=== PATIENT | female | born 1985 | race Caucasian/White ===

== ENCOUNTER → 2021-11-07 | Outpatient (CLI) | payer BC, MEDICAID ==
--- NOTE | 2021-11-07 12:35 | Diagnostic Imaging Report ---
INDICATION: survey. TECHNIQUE: Multiple real-time grayscale images were obtained over the gravid uterus. COMPARISON: None FINDINGS: There is a single live fetus in a cephalic presentation. heart rate was recorded at 146 bpm. Placenta is anterior. Amniotic fluid volume is normal. Cervical length is 4.7 cm. survey shows kidneys, bladder and stomach to be unremarkable. brain is unremarkable. There is a four-chamber heart. There is a three-vessel cord with normal insertion. spine is unremarkable. Biometrical measurements are as follows: Biparietal 4.64 cm, age 20 weeks 1 days. Head circumference 17.53 cm, age 20 weeks 1 days. Abdominal circumference 15.99 cm, age 21 weeks 1 days. Femur length 3.45 cm, age 21 weeks 0 days. Sonographic estimate age: 20 weeks 5 days. Sonographic estimated date of delivery: 03/22/2022. Estimated Weight: 382 gm (+/- 56 gm). LMP percentile: 70%. heart rate: 146 beats per minute. number: 1 of 1. IMPRESSION: Single live IUP 20 weeks 5 days gestational age. Estimated date of confinement sonographically is 03/22/2022. No complicating features are detected. Dictated by: Dictated on workstation # [id number]
== END ==
LOC: RAD 10:00
PROVIDERS: ATTEND Nurse Practitioner Women's Health
DX: Z34.02 Encounter for supervision of normal first pregnancy, second trimester (principal); Z3A.20 20 weeks gestation of pregnancy
CPT/HCPCS: 76805

== ENCOUNTER 2021-11-24 06:54 | Outpatient (CLI) | payer BC, MEDICAID ==
[2021-11-24] VITALS (8 sets, daily range): BP systolic 133–153; BP diastolic 68–92
[~2021-11-24] VITALS: Ht 165.1 cm; Wt 113.0 kg
[2021-11-24 07:50] LABS: BILIRUBIN,URINE NEGATIVE (NEGATIVE); CLARITY,URINE CLEAR; COLOR,URINE YELLOW; GLUCOSE, URINE (UA) NEGATIVE (NEGATIVE); KETONES,URINE NEGATIVE (NEGATIVE); LEUKOCYTE ESTERASE ,URINE NEGATIVE (NEGATIVE); NITRITE,URINE NEGATIVE (NEGATIVE); PH,URINE 6.5 (5-9); PROTEIN,URINE 1+ (NEGATIVE)
[2021-11-24 07:59] LABS: BACTERIA,URINE FEW /HPF; RBC,URINE RARE /HPF; WBC,URINE RARE /HPF
[2021-11-24] MEDS ORDERED: CYCLOBENZAPRINE 10 MG (FLEXERIL) TAB PO ONE (08:15)
[2021-11-24] MEDS ORDERED: PNV11TAB5 PO (08:18)
[2021-11-24] MEDS ORDERED: ASPI-999 PO (08:20)
[2021-11-24] MEDS ORDERED: CYCL10TA25 PO (08:31)
--- NOTE | 2021-11-25 08:20 | Physician Query-Final Dx ---
FLETCHER,11/25/21 0820: Clinic Account Progress/Dx Physician Query: Please give diagnosis Please include # weeks gestation Date of Service Nov 24, 2021 at 06:54 MAURY OHARA DO 11/26/21 0528: Clinic Account Progress/Dx DIAGNOSIS: Diagnosis 23 week IUP Pelvic pains FLETCHER,JunNov 25, 2021 08:20 MAURY OHARA DO Nov 26, 2021 05:28
== END 2021-11-24 09:00 | disposition home or self-care (01) ==
LOC: WSo 06:54 → LDRP 06:55 → WSo 09:00
PROVIDERS: ATTEND Obstetrics & Gynecology
DX: O26.899 Other specified pregnancy related conditions, unspecified trimester (principal); O62.9 Abnormality of forces of labor, unspecified; M54.50 Low back pain, unspecified; Z3A.00 Weeks of gestation of pregnancy not specified
CPT/HCPCS: 81000; G0463; 99212

== ENCOUNTER → 2022-02-18 | Outpatient (CLI) | payer BC, MEDICAID ==
[~2022-02-18] MED LIST: ASPI-999 PO; CYCL10TA25 PO; LABE200T10 PO; PNV11TAB5 PO
== END ==
LOC: LABNPT 15:13
PROVIDERS: ATTEND Nurse Practitioner Women's Health
DX: O13.9 Gestational [pregnancy-induced] hypertension without significant proteinuria, unspecified trimester (principal); Z3A.00 Weeks of gestation of pregnancy not specified
CPT/HCPCS: 82570; 84156

== ENCOUNTER → 2022-02-19 | Outpatient (CLI) | payer BC, MEDICAID ==
--- NOTE | 2022-02-19 17:33 | Diagnostic Imaging Report ---
INDICATION: -induced hypertension TECHNIQUE: Multiple real-time grayscale images were obtained over the gravid uterus. COMPARISON: 11/07/2021 FINDINGS: Single live intrauterine is in cephalic presentation. The cervix is not well seen but measures approximately 4 cm in length. Placenta is anterior position and there is no previa. JOSIANE is normal at 15.6 cm. Biophysical profile performed and the fetus scored 2 points for movement, tone and amniotic fluid volume. The fetus got 0 points for breathing movements. Biometrical measurements are as follows: Biparietal 8.32 cm, age 33 weeks 4 days. Head circumference 31.27 cm, age 35 weeks 1 days. Abdominal circumference 30.42 cm, age 34 weeks 3 days. Femur length 6.67 cm, age 34 weeks 2 days. Sonographic estimate age: 34 weeks 3 days. Sonographic estimated date of delivery: 03/30/2022. Estimated Weight: 2397 gm (+/- 350 gm). LMP percentile: 22%. heart rate: 158 beats per minute. number: 1 of 1. IMPRESSION: 1. Biophysical profile score of 6/8 with no points received for breathing. 2. heart rate is 158 bpm. Dictated by: Dictated on workstation # [id number]
== END ==
LOC: RAD 11:16
PROVIDERS: ATTEND Nurse Practitioner Women's Health
DX: O13.3 Gestational [pregnancy-induced] hypertension without significant proteinuria, third trimester (principal); Z3A.34 34 weeks gestation of pregnancy
CPT/HCPCS: 76805; 76819

== ENCOUNTER 2022-02-20 13:12 | Outpatient (CLI) | payer BC, MEDICAID ==
[~2022-02-20] VITALS: Ht 170.2 cm; Wt 119.1 kg
[2022-02-20] VITALS (8 sets, daily range): BP systolic 123–132; BP diastolic 68–78
[~2022-02-20 13:12] MED LIST changes: -LABE200T10 PO
[2022-02-20 13:51] LABS: BILIRUBIN,URINE NEGATIVE (NEGATIVE); CLARITY,URINE CLEAR; COLOR,URINE YELLOW; GLUCOSE, URINE (UA) NEGATIVE (NEGATIVE); KETONES,URINE NEGATIVE (NEGATIVE); LEUKOCYTE ESTERASE ,URINE 1+ (NEGATIVE); NITRITE,URINE NEGATIVE (NEGATIVE); PROTEIN,URINE 1+ (NEGATIVE)
[2022-02-20 14:01] LABS: BACTERIA,URINE FEW /HPF
[2022-02-20 14:02] LABS: TRICHOMONAS,URINE FEW /HPF
[2022-02-20] MEDS ORDERED: LABE200T10 PO ×2 (14:42)
--- NOTE | 2022-02-23 08:33 | Physician Query-Final Dx ---
02/23/22 0833: Clinic Account Progress/Dx Physician Query: Please give diagnosis Please include # weeks gestation Date of Service Feb 20, 2022 at 13:12 CHRISTI LIN MD 02/23/22 0838: Clinic Account Progress/Dx DIAGNOSIS: Diagnosis Preeclampsia at 35 weeks gestation ,JunFeb 23, 2022 08:33 CHRISTI LIN MD Feb 23, 2022 08:38
== END 2022-02-20 14:52 | disposition home or self-care (01) ==
LOC: WSo 13:12 → LDRP 13:13 → WSo 14:52
PROVIDERS: ATTEND Obstetrics & Gynecology
DX: O13.9 Gestational [pregnancy-induced] hypertension without significant proteinuria, unspecified trimester (principal); Z3A.00 Weeks of gestation of pregnancy not specified
CPT/HCPCS: 81000; 87088

== ENCOUNTER → 2022-02-26 | Outpatient (CLI) | payer BC, MEDICAID ==
[~2022-02-26] MED LIST changes: +LABE200T10 PO
--- NOTE | 2022-02-26 17:00 | Diagnostic Imaging Report ---
INDICATION: growth and biophysical profile. TECHNIQUE: Multiple real-time grayscale images were obtained over the gravid uterus. COMPARISON: None FINDINGS: Single live intrauterine is in cephalic presentation. The cervix cannot be adequately visualized due to obscuration by cranium. Placenta is anterior position. JOSIANE is normal 17.6 cm. Biophysical profile is 8/8. Biometrical measurements are as follows: Biparietal 8.17 cm, age 32 weeks 6 days. Head circumference 30.81 cm, age 34 weeks 3 days. Abdominal circumference 33.45 cm, age 37 weeks 3 days. Femur length 7.15 cm, age 36 weeks 5 days. Sonographic estimate age: 35 weeks 3 days. Sonographic estimated date of delivery: 03/30/2022. Estimated Weight: 2902 gm (+/- 424 gm). LMP percentile: 53%. heart rate: 143 beats per minute. number: 1 of 1. IMPRESSION: 1. Normal biophysical profile with a score of 8/8. 2. Appropriate growth since last weeks' examination. Dictated by: Dictated on workstation # [id number]
== END ==
LOC: RAD 13:00
PROVIDERS: ATTEND Obstetrics & Gynecology
DX: Z34.83 Encounter for supervision of other normal pregnancy, third trimester (principal); Z3A.35 35 weeks gestation of pregnancy
CPT/HCPCS: 76805; 76819

== ENCOUNTER 2022-03-02 09:42 | Outpatient (CLI) | payer BC, MEDICAID ==
[2022-03-02 10:05] VITALS: BP 139/81
[2022-03-02 10:52] VITALS: BP 147/90
--- NOTE | 2022-03-03 08:17 | Physician Query-Final Dx ---
FLETCHER,03/03/2217: Clinic Account Progress/Dx Physician Query: Please give diagnosis Please include # weeks gestation Date of Service Mar 02, 2022 at 09:42 MAURY OHARA DO 03/03/22826: Clinic Account Progress/Dx DIAGNOSIS: Diagnosis 36.6 week IUP Mild PreE Morbid obesity FLETCHER,JunMar 03, 2022 08:17 MAURY OHARA DO Mar 03, 2022 08:27
== END 2022-03-02 11:01 | disposition home or self-care (01) ==
LOC: WSo 09:42 → LDRP 09:42 → WSo 11:01
PROVIDERS: ATTEND Obstetrics & Gynecology
DX: Z34.93 Encounter for supervision of normal pregnancy, unspecified, third trimester (principal); Z3A.36 36 weeks gestation of pregnancy
CPT/HCPCS: 59025

== ENCOUNTER 2022-03-03 18:50 | Inpatient (IN) | payer BC, MEDICAID ==
[~2022-03-03] VITALS: Ht 165 cm; Wt 120.2 kg
--- OUTSIDE RECORDS SUMMARY | 2022-03-03 18:55 | XMS REPORT | Clinical Summary ---
Author Author [facility] Organization [facility] Address Unknown Phone Unavailable Care Team Providers Care Profiling Machine Set Up Operator Tool Name Role Phone SelenaReji PCP Source Comments Some departments are not documenting in the electronic medical record. If you d o not see the information that you expected, contact Release of Information in [facility] Information Management department at [phone] for further assistan ce in locating additional records.[facility] Allergies Comments Active Allergy Reactions Severity Noted Date Penicillins ANAPHYLAXIS High 02/04/2018 Medications End Date Status Medication Sig Dispensed Refills Start Date Active ibuprofen (MOTRIN) 800 mg 0 tablet 8 Active traMADol (ULTRAM) 50 mg 0 tablet 8 Active vit Take 1 tablet 0 calc,iron,folic ( by mouth VITAMIN PO) daily. Active other medication 1 Dose daily. 0 Phytoestrogen essentail oil Active acetaZOLAMIDE (DIAMOX) Take three 180 tablet 3 250 mg tablet tablets by 9 mouth twice daily. Active pseudoephedrine HCl Take by 0 (SUDAFED 12 HOUR PO) mouth. Active Problems Problem Noted Date Spondylosis of cervical region without myelopathy or radiculopathy 04/14/2018 Overview: Formatting of this note is di fferent from the original. MRI c-spine 04/2018 IMPRESSION 1. Equivocal tiny foci of T2 prolonga tion in the right lateral and dorsal lateral cord at C5 and C7-T1, respectiv sam. These findings are indeterminate on imaging and favored to be artifactual related to gradient and STIR imaging. Gliotic sequelae of a prior nonspecific infectious, inflammatory, or demyelinating insult c ould potentially produce this appearance though are felt less likely. 2. Multilevel degenerative central sp inal and foraminal stenosis, greatest at C6-C7 where large left para central disc osteophyte complex and uncovertebral and facet arthropathy res ults in moderate left paracentral spinal and marked left foraminal stenos is. Vague T2 hyperintensity within the central cord at this level possibly represents minimal cord edema or myelomalacia. Last Assessment & Plan: Formatting of t his note might be different from the original. Clinically without signs of radiculopat hy or myelopathy. Final report of MRI returned after our visit with the patient. I called her and went over the report as well as our interpretation of her images and report. We agree that the lesions are m ost likely artifactual in nature. We do not think these represents signs of MS. In addition, she does have multilevel DJD, however she has no curr ent symptoms or abnormal signs on exam. At this time, our recommendation is to follow expectantly. We reviewed symptoms and signs that wou ld warrant repeat evaluation. White matter abnormality on MRI of brain 03/25/2018 Overview: MRI brain 2018 with a few mild white ma tter abnromalities. One is about 4 mm, but is not periventricular or juxta cortical. She also has swelling of the left optic nerve. MRI c-spine04/2018: per our review, we do not find any convincing cord lesions; she does have degenerative dis c disease. CSF- normal IGG index and Synthesis, bu t 7 oligoclonal bands. L ast Assessment & Plan: Formatting of th is note might be different from the original. She do not suspect she has multiple scl erosis at this time. If she were to have new symptoms of con cern, we encouraged her to follow up with us to re-evaluate. Optic neuritis 02/09/2018 Last Assessment & Plan: Formatting of t his note might be different from the original. The patient's vision and visual amaya are significantly improved. We look forward to her consultation with mark castorena. IIH (idiopathic intracranial hypertension) 8 Last Assessment & Plan: Formatting of t his note might be different from the original. Seems the most likely cause of her opti c nerve swelling. 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 The patient reports a history of left s eusebia headache worsening with left eye movement which, after 4 days, was follo wed by progressive worsening vision OS. She demonstrates a left afferent p upillary defect, decreased vision OS, visual field loss OS, hemorrhagic e niki of the left optic nerve, and mild edema of the right optic nerve--georgiana th confirmed by spectral domain OCT. We were unable to review the patient's MRI which reportedly showed left optic nerve enhancement consistent with optic neuritis, and also periventricular white matter lesions torre ggesting enhanced risk of demyelinative disease. Because of the bilateral though asymmet urvashi disc edema and the patient's body habitus, in addition to the histor y consistent with optic neuritis, we suggest proceeding with lumbar puncture , CSF analysis for demyelinative disease, and measurement of opening pre ssure for possible intracranial hypertension. Then we recommend IV/oral steroid treat ment per the Optic Neuritis Treatment Trial--1 gram IV Solumedrol p er day for 3 days, then 60 mg oral prednisone daily for 10 days, followed by a 4 day oral steroid taper, 40 mg, 30 mg, 20 mg, 10 mg and off. Surgical History Surgery Date Site/Laterality Comments WISDOM TEETH EXTRACTION Medical History Medical History Date Comments Migraines Vision decreased Urinary problem in female Family History Medical History Relation Name Comments Hypertension Father Thyroid Disease Maternal Grandmother Migraines Mother Thyroid Disease Mother Cancer Paternal Grandfather Hypertension Paternal Grandfather Stroke Paternal Grandfather Cancer Paternal Grandmother Hypertension Paternal Grandmother Stroke Paternal Grandmother Migraines Sister Relation Name Status Comments Father Maternal Grandmother Mother Paternal Grandfather Paternal Grandmother Sister Social History Date Tobacco Use Types Packs/Day Years Used Current Every Day Smoker Smokeless Tobacco: Never Used Comments Alcohol Use Standard Drinks/Week Yes 0 (1 standard drink = 0.6 o z pure alcohol) Sex Assigned at Date Recorded Not on file Obstetrics History Last Filed Vital Signs Reading Time Taken Comments Vital Sign 137/90 04/13/2018 12:33 PM [employer] Blood Pressure 91 04/13/2018 12:33 PM [employer] Pulse 36.7 C (98 F) 02/04/2018 1:07 PM CDT Temperature 16 03/24/2018 12:31 PM CDT Respiratory Rate 98% 02/04/2018 3:10 PM CDT Oxygen Saturation - - Inhaled Oxygen Concentration 102.1 kg (225 lb) 10/27/2019 9:18 AM CDT Weight 170.2 cm (5' 7.01") 10/27/2019 9:18 AM CDT Height 35.23 10/27/2019 9:18 AM CDT Body Mass Index Plan of Treatment Health Maintenance Due Date Last Done Comments COVID-19 VACCINE (#1) 02/13/1988 HIV SCREENING 08/12/2002 DTAP/TDAP VACCINES (1 - 08/12/2005 Tdap) HEPATITIS C SCREENING 08/12/2005 PHYSICAL (COMPREHENSIVE) 08/12/2005 EXAM CERVICAL CANCER SCREENING 08/12/2008 DEPRESSION SCREENING 06/07/2021 04/13/2018 INFLUENZA VACCINE 04/07/2022 Results Not on filefrom Last 3 Months Care Teams Start Date End Date Profiling Machine Set Up Operator Tool Relationship Specialty 02/03/18 Reji Walters DO PCP - General Family [address] Medicine [address] A [place] [id number]
[2022-03-03 19:36] VITALS: BP 162/88
[2022-03-03] MEDS ORDERED: MINERAL OIL 30 ML UDC TOP PRN (20:00)
[2022-03-03 20:05] LABS: BASOPHILS % (AUTO) 0 % (0-10); EOSINOPHILS # (AUTO) 0.1 10^3/uL (0.0-0.3); EOSINOPHILS % (AUTO) 1 % (0-10); HEMATOCRIT 33 % (35-52); HEMOGLOBIN 10.7 g/dL (11.5-16.0); LYMPHOCYTES # (AUTO) 1.8 10^3/uL (1.0-4.0); LYMPHOCYTES % (AUTO) 14 % (12-44); MEAN CORPUSCULAR HEMOGLOBIN 30 pg (25-34); MEAN CORPUSCULAR HGB CONC 33 g/dL (32-36); MEAN CORPUSCULAR VOLUME 90 fL (80-99); MEAN PLATELET VOLUME 9.7 fL (9.0-12.2); MONOCYTES # (AUTO) 0.8 10^3/uL (0.0-1.0); MONOCYTES % (AUTO) 6 % (0-12); NEUTROPHILS # (AUTO) 10.2 10^3/uL (1.8-7.8); NEUTROPHILS % (AUTO) 78 % (42-75); PLATELET COUNT 333 10^3/uL (130-400)
[2022-03-03 20:06] LABS: BILIRUBIN,URINE NEGATIVE (NEGATIVE); CLARITY,URINE CLOUDY; COLOR,URINE YELLOW; GLUCOSE, URINE (UA) NEGATIVE (NEGATIVE); KETONES,URINE NEGATIVE (NEGATIVE); LEUKOCYTE ESTERASE ,URINE 1+ (NEGATIVE); NITRITE,URINE NEGATIVE (NEGATIVE); PROTEIN,URINE 2+ (NEGATIVE)
[2022-03-03] MEDS ORDERED: NS IV 500 ML 500 ML ONE (20:12)
[2022-03-03] MEDS ORDERED: D5 LR IV SOLUTION 1,000 ML IV ONE (20:12)
[2022-03-03] MEDS ORDERED: NS IV 500 ML 200 ML IV SCH (20:15)
[2022-03-03 20:16] LABS: BACTERIA,URINE MODERATE /HPF; WBC,URINE 25-50 /HPF; YEAST,URINE LARGE /HPF
[2022-03-03] MEDS: D5 LR IV SOLUTION 1,000 ML IV SCH (20:19)
[2022-03-03 20:36] VITALS: BP 169/104
[2022-03-03] MEDS ORDERED: LABETALOL 200 MG (NORMODYNE) TAB PO ONE (20:52)
[2022-03-03] MEDS: LABETALOL 200 MG (NORMODYNE) TAB PO SCH (20:57)
[2022-03-03 21:15] VITALS: BP 164/91
[2022-03-03] MEDS ORDERED: CATHETER FLUSH 10 ML SYR IV SCH (22:00)
[2022-03-03 22:15] VITALS: BP 158/83
[2022-03-03] MEDS ORDERED: ACETAMINOPHEN 500 MG TAB (TYLENOL) ONE (23:57)
[2022-03-04] VITALS (63 sets, daily range): BP systolic 122–190; BP diastolic 61–106
[2022-03-04] MEDS ORDERED: ceFAZolin INJECTION 1,000 MG VIAL IV ONE
[2022-03-04] MEDS: D5 LR IV SOLUTION 1,000 ML IV SCH ×3 (04:06→18:52)
[2022-03-04] MEDS ORDERED: ACETAMINOPHEN 500 MG TAB (TYLENOL) ONE ×2 (05:41→22:35)
[2022-03-04] MEDS ORDERED: ACETAMINOPHEN 500 MG TAB (TYLENOL) PO ONE ×2 (05:45)
--- NOTE | 2022-03-04 07:25 | History & Physical-OB ---
LITZY RUSSO 03/04/22 0725: OB - Chief Complaint & HPI Date/Time Date of Admission: Date of Admission: Mar 03, 2022 at 18:50 Date seen by a Provider: Mar 04, 2022 Time Seen by a Provider: 07:20 Chief Complaint/History OB-Reason for Admission/Chief: Induction of Labor Hx : 2 Hx Para: 1 Expected Date of Delivery: Mar 24, 2022 Gestational Age in Weeks: 37 Gestational Age in Days: 1 Indication for induction: medical complication (Preeclampsia) Admission Nurse Assessment Rev: Yes History of Labs O+ RPR RI HIV neg VRDL neg GBS positive HBsAg neg Allergies and Home Medications Allergies Coded Allergies: Penicillins (Verified Allergy, Severe, Shortness of Breath, 11/24/21) Patient Home Medication List Home Medication List Reviewed: Yes Aspirin (Aspirin) 81 Mg Tab.chew, 81 MG PO DAILY, (Reported) Entered as Reported by: JOSE MOCK on 11/24/21 0820 Labetalol HCl (Labetalol HCl) 200 Mg Tablet, 200 MG PO BID, (Reported) Entered as Reported by: TATIANA JENKINS on 02/20/22 1442 [id number]/FA/Omega3/Dha/Fish Oil ( Gummies) 400 Mcg-32.5 Mg (25 Mg-7.5 Mg) Tab.chew, 1 EACH PO DAILY, (Reported) Entered as Reported by: JOSE MOCK on 11/24/21 0818 OB - History Hx of Present Care: Yes Ultrasounds: Normal mid trimester US Obstetrical Complications: Pre-eclampsia Patient Past Medical History HTN, asthma Social History/Family History Alcohol Use: Denies Use Recreational Drug Use: No Smoking Cessation: Current every day smoker (.5 PPD) 2nd Hand Smoke Exposure: Yes Immunizations Influenza Vaccine Up-to-Date: No; Not Current OB - Admission Exam Physical Exam Vitals: Vital Signs 03/03/22 03/04/22 03/04/22 20:36 05:45 06:15 Temp 36.6 Pulse 78 Resp 18 B/P (MAP) 169/83 (111) Pulse Ox 98 O2 Delivery Room Air HEENT: NCAT Abdomen: Gravid Cervical Dilatation: 1cm Effacement: 75% (70%) Membranes: Ruptured Heart Rate: 130's Accelerations: Accelerations Present Decelerations: Variable Decelerations Contractions on Admission: 6-10 Minutes Apart Intensity: Mild Moralez Scoring Tool (Modified) Dilation (cm): 1-2cm (1) Effacement (%): 51-79% (2) Labs Laboratory Tests Test 03/03/22 19:55 Range/Units White Blood Count 13.0 H 4.3-11.0 10^3/uL Red Blood Count 3.63 L 3.80-5.11 10^6/uL Hemoglobin 10.7 L 11.5-16.0 g/dL Hematocrit 33 L 35-52 % Mean Corpuscular Volume 90 80-99 fL Mean Corpuscular Hemoglobin 30 25-34 pg Mean Corpuscular Hemoglobin Concent 33 32-36 g/dL Red Cell Distribution Width 14.2 10.0-14.5 % Platelet Count 333 130-400 10^3/uL Mean Platelet Volume 9.7 9.0-12.2 fL Immature Granulocyte % (Auto) 1 % Neutrophils (%) (Auto) 78 H 42-75 % Lymphocytes (%) (Auto) 14 12-44 % Monocytes (%) (Auto) 6 0-12 % Eosinophils (%) (Auto) 1 0-10 % Basophils (%) (Auto) 0 0-10 % Neutrophils # (Auto) 10.2 H 1.8-7.8 10^3/uL Lymphocytes # (Auto) 1.8 1.0-4.0 10^3/uL Monocytes # (Auto) 0.8 0.0-1.0 10^3/uL Eosinophils # (Auto) 0.1 0.0-0.3 10^3/uL Basophils # (Auto) 0.0 0.0-0.1 10^3/uL Immature Granulocyte # (Auto) 0.1 0.0-0.1 10^3/uL Urine Color YELLOW Urine Clarity CLOUDY Urine pH 6.0 5-9 Urine Specific [place] >=1.030 1.016-1.022 Urine Protein 2+ H NEGATIVE Urine Glucose (UA) NEGATIVE NEGATIVE Urine Ketones NEGATIVE NEGATIVE Urine Nitrite NEGATIVE NEGATIVE Urine Bilirubin NEGATIVE NEGATIVE Urine Urobilinogen 0.2 < = 1.0 MG/DL Urine Leukocyte Esterase 1+ H NEGATIVE Urine RBC (Auto) TRACE-I H NEGATIVE Urine RBC 2-5 H /HPF Urine WBC 25-50 H /HPF Urine Squamous Epithelial Cells 2-5 /HPF Urine Crystals NONE /LPF Urine Bacteria MODERATE H /HPF Urine Casts NONE /LPF Urine Mucus NEGATIVE /LPF Urine Yeast LARGE H /HPF Urine Culture Indicated YES OB - Assessment/Plan/Diagnosis Assessment Assessment: group B positive strep, induction of labor Admission Dx 36 y @ 37.1 here for induction of labor due to chronic hypertension with superimposed mild pre-eclampsia GBS positive H/o Pre-eclampsia Admission Status: Inpatient Order (span 2 midnights) Reason for Inpatient Admission: Induction of labor Plan Plan: Induction CHAZ SUNSHINE DO 03/04/22 1415: Allergies and Home Medications Allergies Coded Allergies: Penicillins (Verified Allergy, Severe, Shortness of Breath, 11/24/21) Patient Home Medication List Aspirin (Aspirin) 81 Mg Tab.chew, 81 MG PO DAILY, (Reported) Entered as Reported by: JOSE MOCK on 11/24/21 0820 Labetalol HCl (Labetalol HCl) 200 Mg Tablet, 200 MG PO BID, (Reported) Entered as Reported by: TATIANA JENKINS on 02/20/22 1442 [id number]/FA/Omega3/Dha/Fish Oil ( Gummies) 400 Mcg-32.5 Mg (25 Mg-7.5 Mg) Tab.chew, 1 EACH PO DAILY, (Reported) Entered as Reported by: JOSE MOCK on 11/24/21 0818 OB - Assessment/Plan/Diagnosis Plan Other Plan Verification and Attestation of Medical Student E/M Service A medical student performed and documented this service in my presence. I review ed and verified all information documented by the medical student and made modifications to such information, when appropriate. I personally performed the physical exam and medical decision making. Chaz Sunshine Mar 04, 2022,14:15 LITZY RUSSO Mar 04, 2022 07:25 CHAZ SUNSHINE DO Mar 04, 2022 14:15
[2022-03-04] MEDS ORDERED: fentaNYL 2 mcg/ml BUPIVA 0.125 100 ML ONE (07:55)
[2022-03-04] MEDS ORDERED: ceFAZolin INJECTION 1,000 MG ONE (07:55)
[2022-03-04] MEDS ORDERED: NS (IVPB) 0 ML ONE (07:55)
[2022-03-04] MEDS ORDERED: NS (IVPB) 50 ML ONE (07:59)
[2022-03-04] MEDS ORDERED: ceFAZolin INJECTION 1,000 MG in NS (IVPB) 50 ML IV SCH (08:00)
[2022-03-04] MEDS ORDERED: BUPIVACAINE 0.25% 30 ML (SENSORCAINE) VIAL ONE (08:29)
[2022-03-04] MEDS ORDERED: fentaNYL INJ 100 MCG/2 ML AMP ONE (08:29)
[2022-03-04] MEDS ORDERED: fentaNYL 2 mcg/ml BUPIVA 0.125 100 ML EPI SCH (08:45)
[2022-03-04] MEDS ORDERED: NALOXONE 0.4 MG/ML 1 ML (NARCAN) VIAL IV PRN ×2 (08:45→14:30)
[2022-03-04] MEDS ORDERED: LACTATED RINGERS 1,000 ML IV SCH (08:45)
[2022-03-04] MEDS ORDERED: ONDANSETRON 4 MG/2 ML (SDV) Z0FRAN IV PRN (08:45)
[2022-03-04] MEDS ORDERED: diphenhydrAMINE 50 MG/ML INJ (BENADRYL) IV PRN (08:45)
[2022-03-04] MEDS ORDERED: OXYTOCIN PRE-MIX DRIP 500 ML IV ONE (09:21)
[2022-03-04] MEDS ORDERED: OXYTOCIN PRE-MIX DRIP 500 ML IV SCH ×2 (09:30→14:30)
[2022-03-04] MEDS: LABETALOL 200 MG (NORMODYNE) TAB PO SCH ×2 (09:40→20:50)
--- NOTE | 2022-03-04 14:23 | OB Labor & Delivery Record ---
L&D History Date of Service Date of Service: Mar 04, 2022 History Expected Date of Delivery: Mar 24, 2022 Gestational Age in Weeks: 37 Hx : 2 Hx Para: 1 Complications Events: Routine care Operative Indications (Cesarea: N/A-Vaginal Delivery Intrapartal Events: None L&D Stage1 Stage One Onset of Labor - Date: Mar 04, 2022 Monitors and Tracing Monitor Mode: Internal Heart Rate: 135 Station: 0 Custodial Variability: Average (6-10) Short Term Variability: Present Presentation: Vertex Vital Signs VS - Last 72 Hours, by Label 03/03/22 03/03/22 03/03/22 03/03/22 19:36 20:36 21:15 22:15 Temp 36.7 Pulse 90 102 75 76 Resp 18 18 18 18 B/P (MAP) 162/88 (112) 164/91 (115) 158/83 (108) Pulse Ox 98 98 O2 Delivery Room Air Room Air Room Air Room Air 03/04/22 03/04/22 03/04/22 03/04/22 00:15 01:30 02:30 03:15 Pulse 84 82 81 73 Resp 18 18 18 18 B/P (MAP) 150/70 (96) 160/86 (110) 160/92 (114) 136/71 (92) O2 Delivery Room Air Room Air Room Air Room Air 03/04/22 03/04/22 03/04/22 03/04/22 04:15 05:45 06:15 07:12 Temp 36.6 Pulse 75 74 78 67 Resp 18 18 18 18 B/P (MAP) 159/85 (109) 167/97 (120) 169/83 (111) 190/91 (124) O2 Delivery Room Air Room Air Room Air Room Air 03/04/22 03/04/22 03/04/22 03/04/22 07:40 08:12 08:45 08:48 Temp 36.8 Pulse 76 78 73 77 Resp 18 18 18 18 B/P (MAP) 190/93 (125) 182/92 (122) 176/103 (127) 182/101 (128) Pulse Ox 99 99 O2 Delivery Room Air Room Air Room Air Room Air 03/04/22 03/04/22 03/04/22 03/04/22 08:51 08:54 08:57 09:00 Pulse 84 80 84 78 Resp 18 18 18 18 B/P (MAP) 179/90 (119) 182/77 (112) 176/79 (111) 171/95 (120) Pulse Ox 99 98 98 99 O2 Delivery Room Air Room Air Room Air Room Air 03/04/22 03/04/22 03/04/22 03/04/22 09:03 09:06 09:10 09:12 Temp 36.6 Pulse 67 75 86 82 Resp 18 18 18 18 B/P (MAP) 179/102 (127) 165/91 (115) 155/84 (107) 154/78 (103) Pulse Ox 98 98 98 O2 Delivery Room Air Room Air Room Air Room Air 03/04/22 03/04/22 03/04/22 03/04/22 09:15 09:18 09:21 09:24 Pulse 81 69 60 82 Resp 18 18 18 18 B/P (MAP) 147/71 (96) 154/97 (116) 151/83 (105) 152/87 (108) Pulse Ox 97 96 97 O2 Delivery Room Air Room Air Room Air Room Air 03/04/22 03/04/22 03/04/22 03/04/22 09:27 09:30 09:33 09:36 Pulse 82 65 66 75 Resp 18 18 18 18 B/P (MAP) 143/81 (101) 145/86 (105) 154/86 (108) 135/78 (97) Pulse Ox 97 96 96 O2 Delivery Room Air Room Air Room Air Room Air 03/04/22 03/04/22 03/04/22 03/04/22 09:40 09:51 10:03 10:21 Pulse 76 68 89 80 Resp 18 18 18 18 B/P (MAP) 148/85 (106) 142/87 (105) 156/90 (112) 153/81 (105) Pulse Ox 98 98 97 O2 Delivery Room Air Room Air Room Air Room Air 03/04/22 03/04/22 03/04/22 03/04/22 10:36 10:51 11:02 11:20 Pulse 65 75 71 71 Resp 18 18 18 18 B/P (MAP) 137/78 (97) 138/81 (100) 142/78 (99) 134/80 (98) Pulse Ox 96 97 97 97 O2 Delivery Room Air Room Air Room Air Room Air 03/04/22 03/04/22 03/04/22 03/04/22 11:35 11:49 12:03 12:20 Temp 36.1 Pulse 72 66 68 80 Resp 18 18 18 18 B/P (MAP) 125/69 (87) 122/61 (81) 135/66 (89) 143/69 (93) Pulse Ox 100 100 100 100 O2 Delivery Non Rebreather Non Rebreather Non Rebreather Non Rebreather O2 Flow Rate 15.00 15.00 15.00 15.00 03/04/22 03/04/22 12:35 12:51 Temp 36.2 Pulse 72 75 Resp 18 18 B/P (MAP) 135/67 (89) 123/65 (84) Pulse Ox 100 100 O2 Delivery Non Rebreather Non Rebreather O2 Flow Rate 15.00 15.00 Rupture of Membranes Spontaneous Ruture of Membrane: No Amniotic Membrane Rupture Time: 0832 Amniotic Membrane Fluid Desc.: Clear Vaginal Bleeding Description: Normal Show Induction/Anesthesia Epidural Cath Placement - Time: 09 L&D Stage2 Stage Two Stage II Date: Mar 04, 2022 Monitors and Tracing Monitor Mode: Internal Heart Rate: 135 Monitor Accelerations: Uniform Monitor Decelerations: Variable [place] Technician Variability: Average (6-10) Position: Right Occiput Anterior Cord Descript/Complications Cord Vessel Description: 3 Vessels Delivery Type Delivery Method: Spontaneous Vaginal Anterior Shoulder: Right Episiotomy/Perineal Laceration Laceraction(s)/Extensions: No Condition of Infant Delivery 1 minute Comment: 8 5 minute Comment: 9 Notes Live female eight pending Condition of Infant Condition of : Living Exam: No Observed Abnormalities Resuscitation Resuscitation: N/A - Spontaneous Resp L&D Stage3 Stage Three Stage III Date: Mar 04, 2022 Pictocin Pitocin ml/hr: 0 Pitocin Administration Comment: 30 mu wide open after delivery of placenta Placenta Delivery Placenta Delivery: Spontaneous Delivery Summary Summary Estimated blood loss (mL): 313 Attending at delivery: Maury Ohara DO Condition of Delivery Examined: Cervix Examined, Uterus Explored Post Hemorrhage: No Condition of Mother stable Condition of (s) stable MAURY OHARA DO Mar 04, 2022 2:23 pm
[2022-03-04] MEDS ORDERED: HYDROcodone/APAP 5 MG/325 MG (LORTAB) TAB PO PRN (14:30)
[2022-03-04] MEDS ORDERED: DIBUCAINE 1% OINTMENT 30 GM TUBE TOP PRN (14:30)
[2022-03-04] MEDS ORDERED: WITCH HAZEL(TUCKS) 40 EA JAR TOP PRN (14:30)
[2022-03-04] MEDS ORDERED: TETANUS,DIPTH,PERTUSS P/F (BOOSTRIX) 0.5 ML VIAL IM ONE (14:30)
[2022-03-04] MEDS ORDERED: BENZOCAINE/MENTHOL (DERMOPLAST) 56 ML CAN TP PRN (14:30)
[2022-03-04] MEDS ORDERED: MEASLES,MUMPS,RUBELLA 1 EA INJ SQ ONE (14:30)
[2022-03-04] MEDS: IBUPROFEN 600 MG (MOTRIN) TAB PO SCH ×2 (15:01→20:49)
[2022-03-04] MEDS ORDERED: MAGNESIUM 4 GM/100 ML IVPB 100 ML IV ONE (18:38)
[2022-03-04] MEDS ORDERED: CALCIUM GLUC. 10% 4.65 MEQ/10 ML VIAL IV SCH (18:45)
[2022-03-04] MEDS ORDERED: MAGNESIUM 4 GM/100 ML IVPB 100 ML IV SCH (18:45)
[2022-03-04] MEDS: MAGNESIUM SULFATE DRIP 500 ML IV SCH (19:16)
[2022-03-04] MEDS: DOCUSATE SODIUM 100 MG (COLACE) CAP PO SCH (20:50)
[2022-03-04] MEDS ORDERED: CATHETER FLUSH 10 ML SYR IV SCH (22:00)
[2022-03-04] MEDS ORDERED: LABETALOL HCL 20 MG/4 ML VIAL IV ONE (22:15)
[2022-03-04] MEDS ORDERED: LABETALOL HCL 20 MG/4 ML VIAL ONE (22:20)
[2022-03-04] MEDS: ACETAMINOPHEN 500 MG TAB (TYLENOL) PO PRN (22:37)
[2022-03-05] VITALS (13 sets, daily range): BP systolic 126–166; BP diastolic 62–100
[2022-03-05] MEDS: IBUPROFEN 600 MG (MOTRIN) TAB PO SCH ×4 (03:17→20:20)
[2022-03-05] MEDS: MAGNESIUM SULFATE DRIP 500 ML IV SCH (04:47)
[2022-03-05] MEDS: ACETAMINOPHEN 500 MG TAB (TYLENOL) PO PRN ×3 (05:07→22:17)
[2022-03-05] MEDS: LABETALOL 200 MG (NORMODYNE) TAB PO SCH ×3 (05:08→20:19)
[2022-03-05] MEDS: D5 LR IV SOLUTION 1,000 ML IV SCH (08:06)
--- NOTE | 2022-03-05 08:21 | Postpartum Progress Note ---
LITZY RUSSO 03/05/22 0821: Note Note Day # 1 Subjective: Patient is without complaints. Ambulating, voiding. Tolerating a regular diet without nausea or vomiting. Normal lochia. Pain is well controlled with oral pain medications. Bottle feeding. Objective: VSS Afebrile Physical Exam: General - Alert and oriented, no apparent distress Abdomen - Soft, appropriately tender to palpation, non-distended, fundus firm at umbilicus Extremities - no edema, negative Julisa's bilaterally Assessment: post- day # 1, status post vaginal delivery. Recovering well, hemodynamically stable Patient started on MgSO4 Patient was given 10mg IV of Labetolol overnight for a bp spike and labetolol regimen increased to 200mg TID. Plan: Routine care. Encourage breast feeding. Encourage ambulation. Ferrous sulfate supplementation. Plan for discharge tomorrow pending stable blood pressures Vitals - Labs Vital Signs - I&O Vital Signs Date Time Temp Pulse Resp B/P (MAP) Pulse Ox O2 Delivery O2 Flow Rate FiO2 03/05/22 08:10 36.4 03/05/22 07:00 91 18 126/78 (94) 98 Room Air 03/05/22 06:00 88 18 126/82 (97) 100 Room Air 03/05/22 05:00 91 18 160/100 (120) 99 Room Air 03/05/22 04:00 92 18 126/69 (88) 95 Room Air 03/05/22 03:00 36.4 75 18 145/88 (107) 98 Room Air 03/05/22 02:00 72 18 130/71 (90) 98 Room Air 03/05/22 01:00 70 18 141/92 (108) 99 Room Air 03/05/22 00:00 80 18 166/99 (121) 98 Room Air 03/04/22 23:00 76 18 160/100 (120) 98 Room Air 03/04/22 22:00 36.1 76 18 172/100 (124) 99 Room Air 03/04/22 21:00 73 18 166/97 (120) 99 Room Air 03/04/22 20:45 79 18 167/97 (120) 99 Room Air 03/04/22 20:30 82 18 173/106 (128) 98 Room Air 03/04/22 20:15 79 18 158/98 (118) 98 Room Air 03/04/22 20:15 79 18 158/98 (118) 03/04/22 19:14 85 18 153/94 (113) 99 Room Air 03/04/22 18:30 36.5 84 18 163/86 (111) 97 Room Air 03/04/22 16:18 83 18 142/71 (94) Room Air 03/04/22 15:48 82 18 166/90 (115) Room Air 03/04/22 15:45 76 18 164/83 (110) Room Air 03/04/22 15:34 90 18 174/96 (122) Room Air 03/04/22 15:18 82 18 158/83 (108) Room Air 03/04/22 15:03 36.2 67 18 156/87 (110) Room Air 03/04/22 14:49 36.1 77 18 145/84 (104) Room Air 03/04/22 14:33 36.3 81 18 164/80 (108) Room Air 03/04/22 14:18 36.2 78 18 166/77 (106) Room Air 03/04/22 14:04 82 18 144/71 (95) Room Air 03/04/22 13:50 84 18 159/84 (109) Room Air 03/04/22 13:38 36.3 03/04/22 13:35 73 18 144/88 (106) 100 Non Rebreather 15.00 03/04/22 13:14 76 18 133/78 (96) 100 Non Rebreather 15.00 03/04/22 12:51 36.2 75 18 123/65 (84) 100 Non Rebreather 15.00 03/04/22 12:35 72 18 135/67 (89) 100 Non Rebreather 15.00 03/04/22 12:20 80 18 143/69 (93) 100 Non Rebreather 15.00 03/04/22 12:03 68 18 135/66 (89) 100 Non Rebreather 15.00 03/04/22 11:49 66 18 122/61 (81) 100 Non Rebreather 15.00 03/04/22 11:35 36.1 72 18 125/69 (87) 100 Non Rebreather 15.00 03/04/22 11:20 71 18 134/80 (98) 97 Room Air 03/04/22 11:02 71 18 142/78 (99) 97 Room Air 03/04/22 10:51 75 18 138/81 (100) 97 Room Air 03/04/22 10:36 65 18 137/78 (97) 96 Room Air 03/04/22 10:21 80 18 153/81 (105) 97 Room Air 03/04/22 10:03 89 18 156/90 (112) Room Air 03/04/22 09:51 68 18 142/87 (105) 98 Room Air 03/04/22 09:40 76 18 148/85 (106) 98 Room Air 03/04/22 09:36 75 18 135/78 (97) 96 Room Air 03/04/22 09:33 66 18 154/86 (108) 96 Room Air 03/04/22 09:30 65 18 145/86 (105) 97 Room Air 03/04/22 09:27 82 18 143/81 (101) Room Air 03/04/22 09:24 82 18 152/87 (108) 97 Room Air 03/04/22 09:21 60 18 151/83 (105) Room Air 03/04/22 09:18 69 18 154/97 (116) 96 Room Air 03/04/22 09:15 81 18 147/71 (96) 97 Room Air 03/04/22 09:12 82 18 154/78 (103) Room Air 03/04/22 09:10 36.6 86 18 155/84 (107) 98 Room Air 03/04/22 09:06 75 18 165/91 (115) 98 Room Air 03/04/22 09:03 67 18 179/102 (127) 98 Room Air 03/04/22 09:00 78 18 171/95 (120) 99 Room Air 03/04/22 08:57 84 18 176/79 (111) 98 Room Air 03/04/22 08:54 80 18 182/77 (112) 98 Room Air 03/04/22 08:51 84 18 179/90 (119) 99 Room Air 03/04/22 08:48 77 18 182/101 (128) 99 Room Air 03/04/22 08:45 73 18 176/103 (127) 99 Room Air I & O 03/05/22 07:00 Intake Total 2650 ml Output Total 2600 ml Balance 50 ml Labs Microbiology 03/03/22 Urine Culture - Preliminary, Resulted Culture In Progress MAURY OHARA DO 03/06/22 0825: Note Note Verification and Attestation of Medical Student E/M Service A medical student performed and documented this service in my presence. I reviewed and verified all information documented by the medical student and made modifications to such information, when appropriate. I personally performed the physical exam and medical decision making. Maury Ohara, Mar 06, 2022,08:25 LITZY RUSSO Mar 05, 2022 08:21 MAURY OHARA DO Mar 06, 2022 08:25
[2022-03-05 09:06] LABS: BASOPHILS # (AUTO) 0.1 10^3/uL (0.0-0.1); BASOPHILS % (AUTO) 1 % (0-10); EOSINOPHILS # (AUTO) 0.2 10^3/uL (0.0-0.3); EOSINOPHILS % (AUTO) 1 % (0-10); HEMATOCRIT 32 % (35-52); HEMOGLOBIN 10.2 g/dL (11.5-16.0); LYMPHOCYTES # (AUTO) 1.8 10^3/uL (1.0-4.0); LYMPHOCYTES % (AUTO) 15 % (12-44); MEAN CORPUSCULAR HEMOGLOBIN 29 pg (25-34); MEAN CORPUSCULAR HGB CONC 32 g/dL (32-36); MEAN CORPUSCULAR VOLUME 91 fL (80-99); MEAN PLATELET VOLUME 9.1 fL (9.0-12.2); MONOCYTES # (AUTO) 0.7 10^3/uL (0.0-1.0); MONOCYTES % (AUTO) 6 % (0-12); NEUTROPHILS % (AUTO) 76 % (42-75); PLATELET COUNT 282 10^3/uL (130-400); WHITE BLOOD COUNT 11.8 10^3/uL (4.3-11.0)
[2022-03-05] MEDS: DOCUSATE SODIUM 100 MG (COLACE) CAP PO SCH ×2 (09:22→20:19)
[2022-03-05] MEDS: FERROUS SULF 325 MG (IRON) TAB PO SCH (09:22)
[2022-03-05] MEDS: PRENATAL VITAMIN 1 EA TAB PO SCH (09:23)
--- NOTE | 2022-03-05 14:04 | Anesthesia-Regional Post-Op ---
Regional Patient Condition Mental Status: Alert, Oriented x3 Circulation: Same as Pre-Op Headache: Absent Sensation: Full Recovery Motor Block: Absent Post Op Complications Complications None Follow Up Care/Instructions Patient Instructions None needed. Anesthesia/Patient Condition I spoke with patient's mother and she is doing well, no complaints, stable vital signs, no apparent adverse anesthesia problems. She is currently off the floor but doing well and has no complaints. No complications reported per nursing. CYNDEE GARCIA DO Mar 05, 2022 14:03
[2022-03-06 01:53] VITALS: BP 170/82
[2022-03-06] MEDS: IBUPROFEN 600 MG (MOTRIN) TAB PO SCH ×2 (01:53→08:27)
[2022-03-06 04:39] VITALS: BP 162/72
[2022-03-06] MEDS: ACETAMINOPHEN 500 MG TAB (TYLENOL) PO PRN (04:39)
[2022-03-06 06:39] VITALS: BP 171/81
[2022-03-06 06:40] VITALS: BP 164/82
[2022-03-06 08:20] VITALS: BP 146/81
[2022-03-06] MEDS: FERROUS SULF 325 MG (IRON) TAB PO SCH (08:27)
[2022-03-06] MEDS: DOCUSATE SODIUM 100 MG (COLACE) CAP PO SCH (08:27)
[2022-03-06] MEDS: PRENATAL VITAMIN 1 EA TAB PO SCH (08:28)
[2022-03-06] MEDS: LABETALOL 200 MG (NORMODYNE) TAB PO SCH (08:28)
[2022-03-06] MEDS ORDERED: ACET-93 PO (08:29)
[2022-03-06] MEDS ORDERED: BENZ78AE5 TP (08:29)
[2022-03-06] MEDS ORDERED: LABE200T10 PO (08:29)
[2022-03-06] MEDS ORDERED: IBUP-844 PO (08:29)
[2022-03-06] MEDS ORDERED: FURO-125 PO (08:29)
[2022-03-06] MEDS ORDERED: DOCU100C37 PO (08:29)
--- NOTE | 2022-03-06 08:31 | Discharge Inst-Women's Service ---
Discharge Inst-Women's Serv Depart Medication/Instructions New, Converted or Re-Newed RX: Transmitted to Pharmacy Final Diagnosis PPD 2 NVD Mild PreE Problems Reviewed?: Yes Consults/Follow Up Additional Follow Up: Yes Orders/Referrals Dr. Ohara in 6 weeks. Office appointment for BP check next week Wednesday or Wednesday Activity Activity: Activity as Tolerated Driving Instructions: No Driving for 1 Week NO SMOKING: NO SMOKING Nothing Inside Vagina: No Douching, No [place], No Tampons Diet Discharge Diet: No Restrictions Return to The Hospital For: PreE signs symptoms, reviewed with patient. Symptoms to Report to : Bleeding Excessive, Pain Increased, Fever Over 101 Degrees F, Vaginal Bleeding Increase, Questions/Concerns For Any Problems or Questions: Contact Your Physician MAURY OHARA DO Mar 06, 2022 08:31
--- NOTE | 2022-03-06 08:33 | Postpartum Progress Note ---
Note Note Day # [] Subjective: Patient is without complaints, asking to go home. Ambulating, voiding. Tolerating a regular diet without nausea or vomiting. Normal lochia. Pain is well controlled with oral pain medications. Objective: Physical Exam: General - Alert and oriented, no apparent distress Abdomen - Soft, appropriately tender to palpation, non-distended, fundus firm at umbilicus Extremities - no edema, negative Julisa's bilaterally Assessment: PPD 2 NVD PreE Labile BP control- , will continue TID labetalol at discharge and adding lasix for 1 week BMI 44 Plan: Routine care. Follow up next week for BP check Encourage breast feeding. Encourage ambulation. Ferrous sulfate supplementation. Plan for discharge today Vitals - Labs Vital Signs - I&O Vital Signs Date Time Temp Pulse Resp B/P (MAP) Pulse Ox O2 Delivery O2 Flow Rate FiO2 03/06/22 08:20 36.8 94 20 146/81 (102) 98 Room Air 03/06/22 06:40 164/82 (109) 03/06/22 06:39 171/81 (111) 03/06/22 04:39 36.6 82 20 162/72 (102) 98 Room Air 03/06/22 01:53 36.6 76 20 170/82 (111) 97 Room Air 03/05/22 22:16 81 142/62 (88) 97 03/05/22 20:18 36.1 100 20 159/79 (105) 98 Room Air 03/05/22 16:24 36.5 82 18 139/87 (104) 98 Room Air 03/05/22 12:05 36.9 94 18 138/85 (102) 98 Room Air I & O 03/06/22 07:00 Output Total 450 ml Balance -450 ml Labs Laboratory Tests 03/05/22 09:00: White Blood Count 11.8H, Red Blood Count 3.50L, Hemoglobin 10.2L, Hematocrit 32L , Mean Corpuscular Volume 91, Mean Corpuscular Hemoglobin 29, Mean Corpuscular Hemoglobin Concent 32, Red Cell Distribution Width 14.3, Platelet Count 282, Mean Platelet Volume 9.1, Immature Granulocyte % (Auto) 1, Neutrophils (%) (Auto) 76H, Lymphocytes (%) (Auto) 15, Monocytes (%) (Auto) 6, Eosinophils (%) (Auto) 1, Basophils (%) (Auto) 1, Neutrophils # (Auto) 9.0H, Lymphocytes # (Auto) 1.8, Monocytes # (Auto) 0.7, Eosinophils # (Auto) 0.2, Basophils # (Auto) 0.1, Immature Granulocyte # (Auto) 0.1 Microbiology 03/03/22 Urine Culture - Final, Complete >=3 Gram Positive Isolates MAURY OHARA DO Mar 06, 2022 08:33
[2022-03-06] MEDS ORDERED: FUROSEMIDE 20 MG (LASIX) TAB PO ONE (08:45)
[2022-03-06 10:40] VITALS: BP 146/81
== END 2022-03-06 10:40 | disposition home or self-care (01) | DRG 807 ==
LOC: LDRP 18:50
PROVIDERS: ADMIT Obstetrics & Gynecology; ATTEND Obstetrics & Gynecology
PROC: 10E0XZZ Delivery of Products of Conception, External Approach (ICD-10-PCS; principal; 2022-03-04)
PROC: 3E033VJ Introduction of Other Hormone into Peripheral Vein, Percutaneous Approach (ICD-10-PCS; 2022-03-04)
DX: O14.04 Mild to moderate pre-eclampsia, complicating childbirth (principal); Z37.0 Single live birth; Z3A.37 37 weeks gestation of pregnancy; O99.824 Streptococcus B carrier state complicating childbirth; Z79.82 Long term (current) use of aspirin; O99.52 Diseases of the respiratory system complicating childbirth; J45.909 Unspecified asthma, uncomplicated
CPT/HCPCS: 36415; 81000; 85025; 86850; 86900; 86901; 87088